=== PATIENT | female | born 1995 | race African-American/Black ===

== ENCOUNTER 2017-04-24 18:28 | Emergency (ER) | payer MEDICAID ==
[~2017-04-24] VITALS: Ht 167.6 cm; Wt 55.0 kg
[2017-04-24 18:30] VITALS: BP 106/71
== END 2017-04-24 19:15 | disposition left against medical advice (07) ==
LOC: ER 18:44
DX: Z53.21 Procedure and treatment not carried out due to patient leaving prior to being seen by health care provider (principal)